=== PATIENT | female | born 1995 | race Caucasian/White ===

== ENCOUNTER 2020-06-03 17:46 | Emergency (ER) | payer MEDICAID, OTHER ==
[~2020-06-03] VITALS: Ht 165.1 cm; Wt 71.0 kg
[2020-06-03] MEDS ORDERED: IBUPROFEN 600MG TABLET PO ONE (18:15)
[2020-06-03 18:38] VITALS: BP 109/79
== END 2020-06-03 20:55 | disposition home or self-care (01) ==
LOC: ER 17:46
DX: S93.601A Unspecified sprain of right foot, initial encounter (principal); S20.212A Contusion of left front wall of thorax, initial encounter; V49.40XA Driver injured in collision with unspecified motor vehicles in traffic accident, initial encounter; Y93.89 Activity, other specified; Y92.89 Other specified places as the place of occurrence of the external cause; Y99.8 Other external cause status
CPT/HCPCS: 71046; 73630; 81025; 93005; 99284

== ENCOUNTER 2024-12-20 19:49 | Emergency (ER) | payer MEDICAID, OTHER ==
[~2024-12-20] VITALS: Ht 165.1 cm; Wt 73.0 kg
[2024-12-20 19:51] VITALS: O2SAT 99
[2024-12-20 21:44] LABS: BASOPHILS % 1.8 % (0.0-2.0); HEMATOCRIT. 39.8 % (36.0-48.0); HEMOGLOBIN. 13.1 g/dL (12.0-16.0); LYMPHOCYTES % 27.5 % (20.0-50.0); MEAN CORPUSCULAR HGB CONC 32.9 g/dL (31.0-37.0); MEAN CORPUSCULAR VOLUME 97.4 fL (81.0-99.0); MEAN PLATELET VOLUME 9.1 fl (7.4-10.4); MONOCYTES % 8.6 % (2.0-8.0); NEUTROPHILS % 61.1 % (40.0-76.0); PLATELET 198 x1000/uL (130-400); RED BLOOD CELL COUNT 4.08 mill/uL (4.2-5.4); WHITE BLOOD COUNT 3.3 x1000/uL (4.5-11.0)
[2024-12-20] MEDS: KETOROLAC 30MG/ML VIAL IV STA (21:45)
[2024-12-20] MEDS: SODIUM CHLORIDE 0.9% 1,000 ML IV ONE (21:46)
[2024-12-20] MEDS: DIPHENHYDRAMINE 50MG/ML VIAL IV ONE (21:46)
[2024-12-20] MEDS: METOCLOPRAMIDE HCL 10MG/2ML VIAL IV ONE (21:46)
[2024-12-20 21:48] LABS: CHLORIDE 104 mEq/L (98-107); POTASSIUM 3.6 mEq/L (3.5-5.1); SODIUM 136 mEq/L (136-145)
[2024-12-20 21:49] LABS: CALCIUM 9.5 mg/dL (8.7-10.4); CARBON DIOXIDE 24 mEq/L (21-32)
[2024-12-20 21:50] LABS: HCG SCREEN NEGATIVE
[2024-12-20 21:54] LABS: CREATININE 0.6 mg/dL (0.6-1.0); ETHANOL BLOOD < 10 mg/dL (<10); GLUCOSE 102 mg/dL (70-105); UREA NITROGEN BLOOD 8 mg/dL (9-23)
[2024-12-21] MEDS ORDERED: IBUP-2028 MT (01:39)
[2024-12-21 02:01] VITALS: BP 130/89; PULSE 70; RESP 14; TEMP 36.8; O2SAT 99
[2024-12-21] MEDS ORDERED: IOHEXOL-350 100 ML BOTTLE ONE (05:46)
== END 2024-12-21 02:07 | disposition home or self-care (01) ==
LOC: ER 19:56
DX: R51.9 Headache, unspecified (principal); Z79.899 Other long term (current) drug therapy
CPT/HCPCS: 80048; 80320; 84703; 85025; 36415; 96361; 96374; 96375; 99285; 70496; 70498; 70450; J1200; J1885; J2765; J7030; Z7610 ×2; Q9967; G0480